=== PATIENT | female | born 2000 | race Caucasian/White ===

== ENCOUNTER 2020-08-31 10:37 | Emergency (ER) | payer OTHER ==
--- NOTE | 2020-08-31 11:34 | XR ---
EXAMINATION TYPE: XR hand complete RT DATE OF EXAM: 08/31/2020 CLINICAL HISTORY: Pain and swelling after injury. TECHNIQUE: Frontal, lateral and oblique images of the right hand are obtained. COMPARISON: None. FINDINGS: There is acute displaced transverse fracture distal metacarpal. Slight impaction review al daryn with displacement distal fracture fragment. The joint spaces in the right hand appear within norm al limits. The overlying soft tissue appears unremarkable. IMPRESSION: There is acute minimally displaced fracture distal metaphysis fifth metacarpal.
--- NOTE | 2020-08-31 11:47 | ED ---
Upper Extremity HPI - General Chief Complaint: Extremity Injury, Upper Stated Complaint: rt hand injury Time Seen by Provider: 08/31/20 10:47 Source: patient, RN notes reviewed Mode of arrival: ambulatory Limitations: no limitations - History of Present Illness Initial Comments: 20-year-old female presents emergency Department with chief complaint right hand injury. Patient states that she was on her horse fell off the ground catching herself with her right hand. Patient no head injury no other injuries. Patient with a right hand fifth metacarpal pain. Patient is right-hand dominant no wrist pain no other complaints - Related Data Allergies Allergy/AdvReac Type Severity Reaction Status Date / Time No Known Allergies Allergy Verified 08/31/20 10:42 Review of Systems ROS Statement: Those systems with pertinent positive or pertinent negative responses have been documented in the HPI. ROS Other: All systems not noted in ROS Statement are negative. Past Medical History Past Medical History: No Reported History History of Any Multi-Drug Resistant Organisms: None Reported Past Surgical History: No Surgical Hx Reported Past Psychological History: No Psychological Hx Reported Smoking Status: Never smoker Past Alcohol Use History: None Reported Past Drug Use History: None Reported General Exam Limitations: no limitations General appearance: alert, in no apparent distress Head exam: Present: atraumatic, normocephalic, normal inspection Neck exam: Present: normal inspection. Absent: tenderness, meningismus, lymphad enopathy Respiratory exam: Present: normal lung sounds bilaterally. Absent: respiratory distress, wheezes, rales, rhonchi, stridor Cardiovascular Exam: Present: regular rate, normal rhythm, normal heart sounds. Absent: systolic murmur, diastolic murmur, rubs, gallop, clicks Extremities exam: Present: other (Right hands tenderness over the fifth metacarpal region, mild swelling pain with range of motion of her hand) Course Vital Signs 08/31/20 10:38 Temperature 98.7 F Pulse Rate 100 Respiratory 18 Rate Blood Pressure 119/72 O2 Sat by Pulse 98 Oximetry Medical Decision Making - Medical Decision Making X-ray shows distal fifth metacarpal fracture patient was splinted and will follow-up with orthopedics. Disposition Clinical Impression: Fracture of fifth metacarpal bone of right hand Narrative: Distal metacarpal fracture fifth digit right hand Disposition: HOME SELF-CARE Condition: Stable Instructions (If sedation given, give patient instructions): Hand Fracture (ED) Additional Instructions: Please return to the Emergency Department if symptoms worsen or any other concerns. Is patient prescribed a controlled substance at d/c from ED?: No Referrals: None,Stated [Primary Care Provider] - 1-2 days Blake Coppola DO [Doctor of Osteopathic Medicine] - 1-2 days Time of Disposition: 11:47
[2020-08-31] MEDS ORDERED: HYDROcodone/APAP 5-325MG 1 EACH TAB PO STA (11:52)
[2020-08-31] MEDS ORDERED: ACET/COD 300 MG/30 MG STARTER PACK 6 TAB BTL PO STA (11:52)
[2020-08-31 12:11] VITALS: BP 117/74; PULSE 72; RESP 17; TEMP 98
== END 2020-08-31 12:11 | disposition home or self-care (01) ==
LOC: EC 10:37
DX: S62.306A Unspecified fracture of fifth metacarpal bone, right hand, initial encounter for closed fracture (principal); V80.010A Animal-rider injured by fall from or being thrown from horse in noncollision accident, initial encounter
CPT/HCPCS: 99283